=== PATIENT | female | born 1965 | race Caucasian/White ===

== ENCOUNTER 2023-01-04 14:38 | Outpatient (CLI) | payer BC, SELFPAY ==
--- NOTE | 2023-01-04 15:00 | CRLHL7_ITS ---
For Patients: As a result of the Century Cures Act, medical imaging exams and procedure reports are released immediately into your electronic medical record. You may view this report before your referring provider. If you have questions, please contact your health care provider. INDICATION: Generalized abdominal pain TECHNIQUE: CT Abdomen and pelvis with i.v. contrast. Coronal and sagittal reformats were obtained. CONTRAST: 116 mL Isovue 370 COMPARISON: None FINDINGS: Lower chest: Unremarkable. Liver: Unremarkable. Spleen: Unremarkable. Pancreas: Unremarkable. Gallbladder: Unremarkable. Kidney: Unremarkable. No kidney or ureteral stones or obstruction seen. Adrenal: Unremarkable. Bowel: An anastomotic staple line is present at the rectosigmoid junction. There is a gasless density near the ileocecal valve without any apparent obstruction of the terminal ileum. This is most likely due to small bowel contents incompletely mixing with cecal stool. Previous appendectomy noted with no significant appendiceal stump identified. Vascular: Unremarkable. Lymph: Unremarkable. Peritoneum: Unremarkable. No pneumoperitoneum is seen. No significant ascites is noted. Pelvis: Unremarkable. Soft tissue: Unremarkable. Bone: Unremarkable for age. IMPRESSION: 1. No CT correlate for the patient`s symptoms seen. Dictated by Cayetano Merritt MD @ 01/04/2023 4:50:08 PM Please note that all CT scans at this facility use dose modulation, iterative reconstruction, and/or weight-based dosing when appropriate to reduce radiation dose to as low as reasonably achievable. Dictated by: Cayetano Merritt MD @ 01/04/2023 16:53:10 (Electronically Signed)
== END 2023-01-04 14:39 | disposition home or self-care (01) ==
PROVIDERS: PCP Family Medicine; Visit Provider Family Medicine
DX: R10.84 Generalized abdominal pain (principal)
CPT/HCPCS: 74177; Q9967